=== PATIENT | female | born 1960 | race Caucasian/White ===

== ENCOUNTER 2016-07-14 15:54 | Emergency (ER) | payer OTHER ==
[~2016-07-14] VITALS: Ht 162.6 cm; Wt 68.0 kg
[2016-07-14 16:09] VITALS: BP 174/103
[2016-07-14] MEDS ORDERED: ACETAMINOPHEN 325 MG TABLET PO ONE (16:30)
== END 2016-07-14 17:33 | disposition home or self-care (01) ==
LOC: ER 15:55
DX: M25.551 Pain in right hip (principal); M53.3 Sacrococcygeal disorders, not elsewhere classified; E11.9 Type 2 diabetes mellitus without complications; F32.9 Major depressive disorder, single episode, unspecified; I10 Essential (primary) hypertension; F17.200 Nicotine dependence, unspecified, uncomplicated
CPT/HCPCS: 73502; 99284; A4606; Z7610; 73510-TC

== ENCOUNTER 2017-06-09 12:44 | Emergency (ER) | payer OTHER ==
[~2017-06-09] VITALS: Ht 152.4 cm; Wt 63.5 kg
[2017-06-09 12:46] VITALS: BP 90/52
--- NOTE | 2017-06-09 12:46 | NUR ---
PT BIBRA FROM HOME TO ER BED 14. PER REPORT, HAD A SYNCOPAL EPISODE LAST NIGHT. TODAY PT IS C/O GENERALIZED WEAKNESS. 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 PT APPEARS AGITATED. ADMITS TO DRINKING WINE. PLACED ON MONITOR. AWAITING MD BRUSH.
--- NOTE | 2017-06-09 14:23 | NUR ---
PT ROOM IS EMPTY, PT IVHL AND ARMBAND PULLED OFF AND LEFT AT BEDSIDE. PT ELOPED. ERMD AWARE.
== END 2017-06-09 14:29 | disposition left against medical advice (07) ==
LOC: ER 12:46
DX: Z75.3 Unavailability and inaccessibility of health-care facilities (principal)
CPT/HCPCS: A4606; Z7610

== ENCOUNTER 2017-08-20 18:04 | Emergency (ER) | payer OTHER ==
[~2017-08-20] VITALS: Ht 157.5 cm; Wt 72.6 kg
--- NOTE | 2017-08-20 18:20 | NUR ---
BIBRA78 FROM [facility] FELL OF AN ESCALATOR HEAD FIRST NOTED MULTIPLE LACS ON HEAD/FOREHEAD, NOSE, NATHALY AREA. NOTED ALCOHOL BOTTLES WITH PT. ADMITS TO DRINKING AND TAKING WEED TODAY. PT AAOX3. DENIES LOC. SEEN BY MD FOR EVAL. VSS. SAFETY AND COMFORT MEASURES PROVIDED. WILL MONITOR.
[2017-08-20] MEDS ORDERED: TDAP [DIPH/PERTUSSIS/TET] 0.5 ML VIAL IM ONE ×2 (18:27→18:30)
[2017-08-20] MEDS ORDERED: LIDOCAINE HCL/MPF 1% 30 ML VIAL IJ ONE (18:28)
[2017-08-20] MEDS ORDERED: LIDOCAINE HCL/PF 1% 30 ML VIAL TP ONE (18:30)
--- NOTE | 2017-08-20 18:38 | NUR ---
IV ACCESS STARTED. MEDICATED ORDERED. SPEEDOMETER INSPECTOR AT FOR WOUND CARE.
--- NOTE | 2017-08-20 18:48 | NUR ---
PA AT BS FOR WOUND PROCEDURE.
--- NOTE | 2017-08-20 19:06 | NUR ---
REPORT REC'D FROM KEREN RICE FOR OG.
--- NOTE | 2017-08-20 19:29 | NUR ---
PT LEFT FOR CT VIA GURNEY.
[2017-08-20] MEDS ORDERED: CEFAZOLIN 1 GM VIAL IM ONE (19:30)
--- NOTE | 2017-08-20 19:45 | NUR ---
PT RETURNED FROM CT.
[2017-08-20] MEDS ORDERED: CEFAZOLIN 1 GM ONE (19:46)
[2017-08-20] MEDS ORDERED: WATER FOR INJECTION,STERILE 10 ML ONE (19:47)
[2017-08-20] MEDS ORDERED: LIDOCAINE 2% 20 ML MDV ONE (20:33)
[2017-08-20] MEDS ORDERED: LIDOCAINE HCL/PF 1% 30 ML SDV ONE (20:36)
--- NOTE | 2017-08-20 21:23 | NUR ---
PT IS STILL BEING SUTURED. PT IS C/O HAVING TO GO TO THE BATHROOM.
--- NOTE | 2017-08-20 23:00 | NUR ---
Patient discharged to home in stable condition. Written and verbal after care instructions given. Patient verbalizes understanding of instruction AND RX. PT AMBULATED OUT WITH A STEADY GAIT. PT REC'D A [facility] V[facility]CHER HOME. PT WAS INSTRUCTED NOT TO DRIVE. PT TO F/U WITH HER DENTIST. VSS. NAD NOTED.
[2017-08-20 23:02] VITALS: BP 123/80
== END 2017-08-20 23:03 | disposition home or self-care (01) ==
LOC: ER 18:05
DX: S02.2XXB Fracture of nasal bones, initial encounter for open fracture (principal); S02.5XXA Fracture of tooth (traumatic), initial encounter for closed fracture; S03.2XXA Dislocation of tooth, initial encounter; S01.01XA Laceration without foreign body of scalp, initial encounter; S01.81XA Laceration without foreign body of other part of head, initial encounter; S01.21XA Laceration without foreign body of nose, initial encounter; E11.9 Type 2 diabetes mellitus without complications; F12.10 Cannabis abuse, uncomplicated; F32.9 Major depressive disorder, single episode, unspecified; G93.40 Encephalopathy, unspecified; I10 Essential (primary) hypertension; F10.10 Alcohol abuse, uncomplicated; F17.200 Nicotine dependence, unspecified, uncomplicated; W01.198A Fall on same level from slipping, tripping and stumbling with subsequent striking against other object, initial encounter; Y93.89 Activity, other specified; Y92.89 Other specified places as the place of occurrence of the external cause; Y99.8 Other external cause status
CPT/HCPCS: 70450-TC; 70486-TC; 72125-TC; 90715; A4606; A6402; A6403; J0690; J3490; Z7610

== ENCOUNTER 2021-10-24 16:39 | Emergency (ER) | payer OTHER ==
[~2021-10-24] VITALS: Ht 162.6 cm; Wt 74.8 kg
--- NOTE | 2021-10-24 17:00 | NUR ---
AT [facility]
--- NOTE | 2021-10-24 17:15 | NUR ---
BIBS C/O "Left Knee Pain- recent dx w/osteoarthritis, Pain worse and have swelling in Lower leg". AMBULATORY, PLACED ON BED, AAOX4
[2021-10-24] MEDS ORDERED: HYDROCODONE/APAP 5/325MG TABLET ONE ×2 (17:23→20:29)
--- NOTE | 2021-10-24 17:25 | NUR ---
GODWIN U/S TECH AT BED SIDE
[2021-10-24] MEDS ORDERED: HYDROCODONE/APAP 5/325MG TABLET PO ONE ×2 (17:30→20:30)
[2021-10-24] MEDS ORDERED: HYDR-3972 PO ×2 (19:49→20:04)
--- NOTE | 2021-10-24 20:55 | NUR ---
Patient discharged to home in stable condition. Written and verbal after care instructions given. Patient verbalizes understanding of instruction.
[2021-10-24 21:38] VITALS: BP 150/75
== END 2021-10-24 21:00 | disposition home or self-care (01) ==
LOC: ER 16:40
DX: M25.462 Effusion, left knee (principal); I10 Essential (primary) hypertension; F32.A Depression, unspecified; F17.200 Nicotine dependence, unspecified, uncomplicated; Z79.899 Other long term (current) drug therapy
CPT/HCPCS: 73564-TC; 93971-TC